=== PATIENT | female | born 1995 | race Hispanic/Latino ===

== ENCOUNTER 2017-06-21 07:13 | Inpatient (IN) | payer MEDICAID, OTHER, SELFPAY ==
[2017-06-21] MEDS ORDERED: Promethazine HCl 25 MG/ML VIAL IM PRN ×3 (07:43→09:34)
[2017-06-21] MEDS ORDERED: Lidocaine 1% (PF) 30 ML VIAL SC PRN (07:43)
[2017-06-21] MEDS ORDERED: LR / Pitocin 40 units/1000 ml 1,000 ML IV PRN (07:43)
[2017-06-21] MEDS ORDERED: HYDROcodone/Acetaminophen 5/325 mg Tablet PO PRN ×2 (07:43)
[2017-06-21] MEDS ORDERED: Ibuprofen 800 MG TAB PO PRN (07:43)
--- NOTE | 2017-06-21 07:49 | PDOC.LDHP ---
Labor and Delivery H&P HPI: 21 year old (slovak speaking patient of Dr Malik) with no complications presents with CTXs and ROM. Patient of the Clinic. Denies past medical problems. Admitted at [address] Malik aware. Current gestational age (weeks): 37 Dating criteria: last menstrual period Current complications: none Abnormal US findings: No Current medications: none Previous surgical history: none Allergies/Adverse Reactions: Allergies Allergy/AdvReac Type Severity Reaction Status Date / Time No Known Allergies Allergy Unverified 11/20/15 11:39 Social history: none - Physical Exam Vital signs reviewed and normal: yes Heart: RRR Abdomen: gravid - Vaginal Exam cm dilated: 7 Effacement: 90% Station: -1 - Assessment L&D Assessment: term patient in labor - Plan Plan: admit to L&D, informed consent obtained, anesthesia consult for pain management, other (Dr King santiago. I have seen and interviewed/examined the patient.)
[2017-06-21] MEDS: Lactated Ringer's 1,000 ML IV SCH ×2 (08:00→10:04)
[2017-06-21 08:03] VITALS: BMI 34.1
[2017-06-21 08:14] LABS: Hematocrit 33.8 % (36.0-47.0); Mean Platelet Volume 9.7 fL (7.4-10.4); Red Blood Cell (RBC) Count 3.91 mill/uL (4.20-5.40); White Blood Cell (WBC) Count 9.8 thou/uL (4.8-10.8)
[2017-06-21] MEDS ORDERED: Fentanyl 4 mcg/Marc 0.1% Cadd 100 ML ONE (08:16)
--- NOTE | 2017-06-21 08:40 | PDOC.LDHP ---
Labor and Delivery H&P Chief complaint: contractions, loss of fluid HPI: 21 @ 37.5wks by 12wk US with EDC on 07/07/2017 presents to L&D with contractions since 0200 and loss of fluid at 0400. No complaint of bleeding or abnormal discharge. Endorses recent viral illness. OB Hx: 1st: IUFD @ 32weeks 2nd: PMHX: denies PSHX: denies complications: denies, normal ultrasounds, normal quad screen, placenta posterior; mom states most recent ultrasound was on Thursday and baby's head was down. 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 see above. Current medications: pre-daryn vitamins Previous surgical history: none Allergies/Adverse Reactions: Allergies Allergy/AdvReac Type Severity Reaction Status Date / Time No Known Allergies Allergy Verified 06/21/17 07:54 Social history: none - Physical Exam Vital signs reviewed and normal: yes General: NAD, resting, breathing through contractions Heart: RRR Lungs: nonlabored breathing Abdomen: NTTP Extremeties: no edema FHT: category 2, early decelerations, variability present [place] contractions every: 5 minutes - Vaginal Exam cm dilated: 7 Effacement: 90% Station: 0 - OB Labs Blood type: A RH: positive Antibody Screen: negative HIV: negative RPR: negative HEPSAg: negative GBS: negative Rubella: immune Additional Labs: gonorrhea/chlamydia negative - Assessment L&D Assessment: term patient in labor 2 @ 37.5wks by 12wk US with EDC on 07/07/2017 presents to L&D with contractions since 0200 and loss of fluid at 0400 admitted to L&D for term in labor and spontaneous rupture of membranes. - Plan Plan: admit to L&D, informed consent obtained, anesthesia consult for pain management
--- NOTE | 2017-06-21 09:23 | PDOC.LDPN ---
Labor & Delivery Progress Note - Subjective Subjective: comfortable - Objective Vital signs reviewed and normal: yes General: NAD, resting Uterine fundus: non tender Dilation: 7 Effacement: 50% Station: -1 FHT: category 1 (130/mod/+accel/no decel) [place] contractions every: 2 Plan: continue plan of care, labor augmentation -: 21 @ 37.5wks by 12.2 w sono here in active labor. 1. Active Labor: s/p SROM at home. No change since last check, will augment with pitocin. s/p epidural 2. 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 BPP/NST last week 04/21. 3. H/o LGA : a1c and GTT WNL. Will ensure adequate attendant's at delivery for assistance if needed 4. Varicella immune: patient states she had chicken pox as a child 5. Short interval 6. Tdap and flu pp if indicated, will request additional records from [facility] tomorrow MD Alessia, PGY-2 <Charity Shannon - Last Filed: 06/21/17 09:27> Attending Addendum - Attending Addendum I personally evaluated the patient and discussed the management with Dr. Shannon I agree with the History, Examination, Assessment and Plan documented above with any addition or exceptions noted below. <Breezy Lopez - Last Filed: 06/22/17 07:58>
[2017-06-21] MEDS ORDERED: LR 500 ML/Oxytocin 10 units 500 ML IV SCH (09:30)
[2017-06-21] MEDS ORDERED: Lactated Ringer's 500 ML IV PRN ×2 (09:33→09:34)
[2017-06-21] MEDS ORDERED: ePHEDrine/0.9% NaCl/PF SYRINGE 50 mg/10 ml SLOW IVP PRN ×2 (09:33→09:34)
[2017-06-21] MEDS ORDERED: Eucerin (Mineral Oil/Petrolatum,White) 30 gm Jar TOP PRN ×2 (09:33→09:34)
[2017-06-21] MEDS ORDERED: Naloxone HCl 0.4 mg/ml Vial IVP PRN ×4 (09:33→09:34)
[2017-06-21] MEDS ORDERED: Ondansetron HCl/PF 4 MG/2 ML Vial IVP PRN ×2 (09:33→09:34)
[2017-06-21] MEDS ORDERED: diphenhydrAMINE 50 MG/ML VIAL IVP PRN ×2 (09:33→09:34)
[2017-06-21] MEDS ORDERED: Acetaminophen 325 MG TAB PO PRN ×2 (09:33→09:34)
[2017-06-21] MEDS ORDERED: Communication Order-Pharmacy FS SCH ×2 (09:45)
[2017-06-21] MEDS ORDERED: Fentanyl 4mcg/Marcaine 0.1% Cassette 100 ML EPIDURAL SCH (09:45)
--- NOTE | 2017-06-21 11:16 | PDOC.LDPN ---
Labor & Delivery Progress Note - Subjective Subjective: comfortable - Objective Vital signs reviewed and normal: yes General: NAD, resting Uterine fundus: non tender SVE: 11:10 Dilation: 8 Effacement: 75% Station: -1 FHT: category 1 (130/mod variability/+accels/early decels), early decelerations [place] contractions every: q3-4 min IUPC placed: yes Plan: continue plan of care, labor augmentation -: 21 @ 37.5wks by 12.2 w sono here in active labor. 1. Active Labor: s/p SROM at home. Last check at 11:10 was 875/-1. IUPC placed to monitor MVUs. s/p epidural. Continue augmentation with pitocin. 2. 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 BPP/NST last week 04/21. 3. H/o LGA infant: a1c and GTT WNL. Will ensure adequate attendant's at delivery for assistance if needed 4. Varicella immune: patient states she had chicken pox as a child 5. Short interval 6. Tdap and flu pp if indicated, will request additional records from [facility] tomorrow 7. Term <Xochitl Prabhakar - Last Filed: 06/21/17 11:23> Attending Addendum - Attending Addendum I personally evaluated the patient and discussed the management with Dr. Prabhakar I agree with the History, Examination, Assessment and Plan documented above with any addition or exceptions noted below. <Breezy Lopez - Last Filed: 06/22/17 07:59>
--- NOTE | 2017-06-21 13:45 | PDOC.OPDEL ---
OB Operative/Delivery Note Delivery Dr/Surgeon: Vanna Assist: Jessica Shannon Pre-Delivery Diagnosis: active labor, ruptured membrane Procedure/Post Delivery Dx: spontaneous vaginal delivery Anesthesia: epidural - Findings A Sex: female Weight: 6 lb 10.316 oz - 1 min: 9 - 5 min: 9 - Additional Findings/Plan Placenta delivered: spontaneous Repaired Obstetrical Laceration: left labial Estimated blood loss: visualized less than 500 mL Post delivery plan: routine recovery <Xochitl Prabhakar - Last Filed: 06/21/17 15:17> Attending Addendum - Attending Addendum I personally was present for the management and delivery of infant with Dr. Prabhakar and Dr Shannon I agree with the documention above with any addition or exceptions noted below. <Breezy Lopez - Last Filed: 06/22/17 08:01>
[2017-06-21] MEDS ORDERED: Bisacodyl 10 MG SUPP PR PRN (14:03)
[2017-06-21] MEDS ORDERED: Lanolin Ointment 7 GM TUBE TOP PRN (14:03)
[2017-06-21] MEDS ORDERED: Milk Of Magnesia 30 ML UDCUP PO PRN (14:03)
[2017-06-21] MEDS ORDERED: LR / Pitocin 40 units/1000 ml 1,000 ML IV SCH (14:03)
[2017-06-21 16:00] LABS: Band 2 % (5-11); Hematocrit 32.1 % (36.0-47.0); Mean Platelet Volume 10.4 fL (7.4-10.4); Neutrophil 81 % (42-75); Red Blood Cell (RBC) Count 3.69 mill/uL (4.20-5.40); White Blood Cell (WBC) Count 8.9 thou/uL (4.8-10.8)
[2017-06-21] MEDS: Ferrous Sulfate 325 MG TAB PO SCH (19:14)
[2017-06-21] MEDS: Ibuprofen 800 MG TAB PO SCH ×2 (19:14→21:29)
--- NOTE | 2017-06-21 21:03 | OP-2 ---
DELIVERING PHYSICIAN: Xochitl Prabhakar D.O. ATTENDING PHYSICIAN: Breezy Lopze M.D. PROCEDURE: Spontaneous vaginal delivery. ANESTHESIA: Epidural, local for repair. ESTIMATED BLOOD LOSS: Visualized at less than 500 mL. PREOPERATIVE DIAGNOSES: 1. Term intrauterine in labor. 2. History of with Patel syndrome with intrauterine demise at 33 weeks. 3. History of large for gestational age infant. 4. Short interval. 5. Varicella immune. POSTOPERATIVE DIAGNOSES: 1. Term intrauterine , delivered. 2. History of infant with Patel syndrome with intrauterine demise at 33 weeks. 3. History of large for gestational age . 4. Short interval. 5. Varicella immune. 6. Left labial tear status post repair. INDICATIONS: A 21-year-old female G3, P1-1-0-1 at 37 and 5 weeks, presents in active labor with spontaneous rupture of membranes. DELIVERY NOTE: This is a 21-year-old female G3, P1-1-0-1 at 37 and 5 weeks who delivered a viable female infant at 1253 hours on 06/21/2017. Following an uneventful antepartum course, a vigorous female was delivered over an intact perineum in the occipitoanterior position. Anterior shoulder and then remainder of the body delivered. No nuchal cord. The head was held down and mouth and nares were bulb suctioned. Cord clamped and cut and cord blood collected. It is questionable whether or not placenta was intact, so it was sent for pathology. ASSESSMENT: A 3-vessel cord noted. Fundal massage was performed and the fundus was firm. The cervix and vagina were inspected and there was found to be a left labial tear, which was repaired with 3-0 and 4-0 Vicryl in the usual fashion with good approximation and hemostasis after local anesthetic, 1% lidocaine was injected at the site. went to the nursery in good condition for routine care. Apgars were 9 and 9 at 1 and 5 minutes, respectively. The patient tolerated delivery well and went to after routine recovery/care. I was present for the entire delivery and repair. agree with the above documentation. [facility]
[2017-06-21] MEDS: Docusate Calcium (SURFAK) 240 MG CAP PO SCH (21:29)
[2017-06-22] MEDS: Ibuprofen 800 MG TAB PO SCH ×2 (06:13→14:24)
--- NOTE | 2017-06-22 07:20 | PDOC.PP ---
Post Progress Note Post Day #: 1 Subjective: Feeling well this morning. Lochia approximately that of a menstrual period. Feeling well and would like to go home today if able. PO intake tolerated: yes Flatus: yes Ambulation: yes Vital Signs (12 hours) Temp Pulse Resp BP BP 06/22/17 04:25 98.6 F 65 18 92/58 L 06/22/17 00:00 98.4 F 60 18 89/52 L 06/21/17 19:35 99.0 F 64 20 113/61 Weight Weight 92.986 kg - Physical Examination General: NAD Cardiovascular: no m/r/g, RRR Respiratory: clear to auscultation bilaterally, non-labored breathing Abdominal: + bowel sounds, lochia, no distention, appropriately TTP Fundus firm & at: umbilicus Extremities: negative homans (B) Neurological: no gross focal deficits Psychiatric: A&Ox3, normal affect Result Diagrams: 06/21/17 14:46 Additional Labs: Post Labs Hep Bs Antigen Non-Reactive S/CO (NonReactive) 06/21/17 07:55 (1) Term of female Code(s): Z37.0 - SINGLE LIVE Status: Acute - Assessment/Plan 21 yo now 2020 delivered via yesterday afternoon 1. PPD #1 from TSVD - 1st degree L labial laceration s/p repair - Meeting all PP milestones - Pain well-controlled with some intermittent cramping - H&H stable - Likely discharge later today if bleeding remains appropriate and infant ready for D/C <Charity Shannon - Last Filed: 06/22/17 07:20> Vital Signs (12 hours) Temp Pulse Resp BP BP 06/22/17 04:25 98.6 F 65 18 92/58 L 06/22/17 00:00 98.4 F 60 18 89/52 L Weight Weight 205 lb Result Diagrams: 06/21/17 14:46 Additional Labs: Post Labs Hep Bs Antigen Non-Reactive S/CO (NonReactive) 06/21/17 07:55 <Breezy Lopez - Last Filed: 06/22/17 08:04> Attending Addendum - Attending Addendum I agree with the History, Examination, Assessment and Plan documented above with any addition or exceptions noted below. <Breezy Lopez - Last Filed: 06/22/17 08:04>
[2017-06-22] MEDS ORDERED: Adacel (T-DAP) 0.5 ML VIAL IM ONE (09:00)
[2017-06-22] MEDS ORDERED: Prenatal Vitamin 1 TAB PO SCH (09:00)
[2017-06-22] MEDS: Ferrous Sulfate 325 MG TAB PO SCH (09:37)
[2017-06-22] MEDS: Docusate Calcium (SURFAK) 240 MG CAP PO SCH (09:37)
[2017-06-22 12:26] VITALS: BP 100/52; TEMP 97.9
== END 2017-06-22 16:08 | disposition home or self-care (01) | DRG 775 ==
LOC: L&D/OP 07:13 → L&D 09:00 → 3SW 15:19
PROVIDERS: ADMIT Obstetrics & Gynecology; ATTEND Obstetrics & Gynecology
PROC: 10E0XZZ Delivery of Products of Conception, External Approach (ICD-10-PCS; principal; 2017-06-21)
PROC: 0KQM0ZZ Repair Perineum Muscle, Open Approach (ICD-10-PCS; 2017-06-21)
PROC: 4A0HXCZ Measurement of Products of Conception, Cardiac Rate, External Approach (ICD-10-PCS; 2017-06-21)
DX: O76 Abnormality in fetal heart rate and rhythm complicating labor and delivery (principal); O70.1 Second degree perineal laceration during delivery; Z37.0 Single live birth; Z3A.37 37 weeks gestation of pregnancy
CPT/HCPCS: 36415; 85027; 86780; 87340; 87389; 88307; J2001

== ENCOUNTER 2019-08-22 18:49 | Emergency (ER) | payer BC ==
[2019-08-22 19:42] LABS: #Basophils 0.1 thou/uL (0.0-0.2); #Eosinphils 0.3 thou/uL (0.0-0.7); #Lymphocytes 2.9 thou/uL (1.20-3.40); #Monocytes 0.6 thou/uL (0.11-0.59); #Neutrophils 4.6 thou/uL (1.40-6.50); %Basophils 0.7 % (0.0-1.0); %Eosinophils 3.2 % (0.0-10.0); %Lymphocytes 34.7 % (21.0-51.0); %Monocytes 6.7 % (0.0-10.0); %Neutrophils 54.8 % (42.0-75.0); Mean Corpuscular Hemoglobin 28.7 pg (27.0-31.0); Mean Corpuscular Volume 86.9 fL (78.0-98.0); Mean Platelet Volume 9.2 fL (7.4-10.4); Platelet Count 191 thou/uL (130-400); RBC Distribution Width 12.3 % (11.5-14.5); Red Blood Cell (RBC) Count 4.17 mill/uL (4.20-5.40); White Blood Cell (WBC) Count 8.5 thou/uL (4.8-10.8)
[2019-08-22 20:04] LABS: ALT (SGPT) 15 U/L (8-55); AST (SGOT) 14 U/L (5-34); Alkaline Phosphatase 65 U/L (40-110); Anion Gap 10 mmol/L (10-20); BUN (Urea Nitrogen) 10 mg/dL (7.0-18.7); Bilirubin, Total 0.3 mg/dL (0.2-1.2); Calc. Creatinine Clearance 0 mL/min (70-130); Calcium 8.9 mg/dL (7.8-10.44); Carbon Dioxide 26 mmol/L (22-29); Chloride 107 mmol/L (98-107); Estimated GFR-MDRD Greater than 90; Globulin 3.2 g/dL (2.4-3.5); Glucose 111 mg/dL (70-105); Potassium 3.8 mmol/L (3.5-5.1); Protein, Total 7.2 g/dL (6.0-8.3); Sodium 139 mmol/L (136-145)
[2019-08-22 22:58] LABS: Bacteria/HPF None Seen HPF (None Seen); Bilirubin Negative (Negative); Blood, Urine 3+ (Negative); Clarity Extra Turbid (Clear); Glucose, Urine (Dipstick) Normal (Negative); Leukocyte 25 Leu/uL (Negative); Mucous/LPF Rare LPF (<2+); Nitrite Negative (Negative); Protein, Urine (Dipstick) 10 mg/dL (Neg-Trace); Urobilinogen Normal mg/dL (Less than 2); WBC/HPF 0-3 HPF (0-3)
== END 2019-08-22 23:51 | disposition home or self-care (01) ==
LOC: ERS 18:49
DX: O20.0 Threatened abortion (principal); Z3A.01 Less than 8 weeks gestation of pregnancy
CPT/HCPCS: 36415; 76856; 80053; 81003; 81015; 84702; 85025; 86900; 86901; 99284

== ENCOUNTER 2020-01-27 06:41 | Outpatient (CLI) | payer BC, OTHER ==
[2020-01-27 14:09] LABS: #Eosinphils 0.3 thou/uL (0.0-0.7); #Lymphocytes 2.6 thou/uL (1.20-3.40); #Monocytes 0.5 thou/uL (0.11-0.59); #Neutrophils 4.1 thou/uL (1.40-6.50); %Basophils 0.2 % (0.0-1.0); %Eosinophils 3.4 % (0.0-10.0); %Monocytes 6.6 % (0.0-10.0); %Neutrophils 54.8 % (42.0-75.0); Hemoglobin 12.9 g/dL (12.0-16.0); Mean Corpuscular HGB CONC 32.7 g/dL (32.0-36.0); Mean Corpuscular Hemoglobin 28.4 pg (27.0-31.0); Mean Corpuscular Volume 86.8 fL (78.0-98.0); Mean Platelet Volume 10.1 fL (7.4-10.4); Platelet Count 194 thou/uL (130-400); Red Blood Cell (RBC) Count 4.56 mill/uL (4.20-5.40); White Blood Cell (WBC) Count 7.5 thou/uL (4.8-10.8)
[2020-01-28 12:21] LABS: SARS-CoV-2 MS2 Positive; SARS-CoV-2 N Gene Negative; SARS-CoV-2 S Gene Negative; SARS-CoV-2 orf1ab Negative
== END 2020-01-27 06:42 | disposition home or self-care (01) ==
LOC: LABBT 06:41
PROVIDERS: ATTEND Obstetrics & Gynecology
DX: Z01.812 Encounter for preprocedural laboratory examination (principal); Z11.59 Encounter for screening for other viral diseases; T83.32XA Displacement of intrauterine contraceptive device, initial encounter
CPT/HCPCS: 84702; 85025; 87635; U0003

== ENCOUNTER 2020-01-30 11:20 | Day surgery (SDC) | payer BC ==
[2020-01-26 16:14] VITALS: BMI 32.5
--- NOTE | 2020-01-30 11:38 | HP ---
HISTORY OF PRESENT ILLNESS: Ms. Tariq Ellis is a 24-year-old female A2, prior x2, who has had a Mirena IUD in situ and a noted back in early August 2019. The IUD was attempted to be removed and it was unable to be removed at that time and ultrasound showed loss of gestational sac with followup ultrasound on 09/08 showing loss of gestational sac with IUD still in the cervix. She was seen in my office on 09/12/2019 for attempted removal of the IUD. On an attempt to remove the IUD that was dislodged at the previous clinic, while trying to remove it, the end of the strings were grasped with steady force applied to dislodge the IUD and the strings broke off fully. The IUD remained lodged. Ultrasound was performed and it appeared that the IUD is somewhat embedded in the lower uterine segment and cervix. Due to this, she is scheduled to undergo diagnostic hysteroscopy with attempted removal of the IUD with possible laparoscopy if indicated. PAST MEDICAL HISTORY: Otherwise negative. PAST SURGICAL HISTORY: Negative. She had two spontaneous vaginal deliveries. CURRENT MEDICATION: Depo-Provera 150 mg q.3 months for contraception due to improperly placed IUD. FAMILY HISTORY: Only significant for mother who has had leukemia and a maternal aunt with carcinoma of the cervix. PHYSICAL EXAMINATION: VITAL SIGNS: Height is 5 feet 5 inches, weight 196, BMI 32.6, blood pressure 112/64, pulse 72 and regular, respiratory rate 18, and O2 saturation on room air 98%. HEENT: Within normal limits. CHEST: Clear to auscultation. HEART: Regular rate and rhythm. S1, S2 heart sounds. No murmurs, rubs, or gallops. ABDOMEN: Soft, nontender, nondistended with no palpable masses. PELVIS: Vulva and vagina had no lesions. Cervix had no lesions. As noted, the strings had broken off from the IUD while trying to remove it due to it being most likely embedded in the lower uterine cervix and segment of the cervix. No adnexal masses were palpated nor were they visualized on ultrasound. The ultrasound was performed on 09/08/2019. Uterus measured 9.6 x 6.4 x 4.4 cm. Left and right ovary were normal. The IUD removal had been attempted at [facility], but unsuccessful, and there is still IUD visualized in the cervical canal and appears to be extended into the posterior wall of the uterus. There is no gestational sac seen at that time. ASSESSMENT: This is a 24-year-old, G5, P2, A3 with dislodged, imbedded IUD. PLAN: Plan is to proceed with hysteroscopic attempted removal in the operating room. If there is any evidence of significant perforation, laparoscopy at that time may be indicated to ascertain location. Risks and benefits of procedure I have discussed in detail. She is set for surgery on 01/29. Job ID: [id number]
[2020-01-30] MEDS ORDERED: Famotidine/PF 20 mg/2ml Vial ONE (12:04)
[2020-01-30] MEDS ORDERED: CeleCOXIB 100 MG CAP ONE (12:04)
[2020-01-30] MEDS ORDERED: Ondansetron PF 4 MG/2 ML Vial ONE (12:35)
[2020-01-30] MEDS ORDERED: Succinylcholine Chloride 20 MG/ML 10 ml SYRINGE FS ONE (12:35)
[2020-01-30] MEDS ORDERED: Rocuronium Bromide 10 MG/ML (10ML VIAL) ONE (12:35)
[2020-01-30] MEDS ORDERED: Dexamethasone 20 MG/5 ML VIAL ONE (12:35)
[2020-01-30] MEDS ORDERED: Lidocaine 1% PF 5 ML VIAL ONE (12:35)
[2020-01-30] MEDS ORDERED: PROPOFOL 200 MG/20 ML VIAL ONE (12:35)
[2020-01-30] MEDS ORDERED: Gabapentin 300 MG CAP ONE (12:41)
[2020-01-30] MEDS ORDERED: Fentanyl 100 MCG/2 ML VIAL ONE (13:22)
[2020-01-30] MEDS ORDERED: Lidocaine 1% w/Epinephrine 1:100K 20 ML VIAL ONE (13:31)
[2020-01-30] MEDS ORDERED: Bupivacaine PF 0.5% 30 ML VIAL ONE (13:31)
--- NOTE | 2020-01-30 20:46 | OP ---
DATE OF PROCEDURE: 01/30/2020 PREOPERATIVE DIAGNOSIS: A 24-year-old Latin-N[place]ian female, G2, P1, A1 with embedded Mirena IUD. POSTOPERATIVE DIAGNOSIS: Perforated IUD. PROCEDURES PERFORMED: Diagnostic hysteroscopy followed by diagnostic laparoscopy with removal of IUD device. ANESTHESIA: General endotracheal. ESTIMATED BLOOD LOSS: Less than 10 mL. Fluid deficit from the hysteroscopic procedure was 200 mL of normal saline. FINDINGS: 1. Hysteroscopic evaluation. Endometrial cavity showed normal upper fundus and bilateral tubal ostia with an IUD string noted that was taut and fixed in the posterior lower uterine segment. No IUD device visualized in the endometrial cavity or cervical canal. 2. Laparoscopic finding, perforation of IUD device in the right posterior lower uterine segment noted corresponding to the trailing IUD string seen in the endometrial cavity. It was covered with some omental adhesions, status post removal. 3. Normal-appearing uterus, bilateral fallopian tubes and bilateral ovaries. DISPOSITION: To recovery room, then plan for discharge from Day Stay. DESCRIPTION OF PROCEDURE: The patient previously received informed consent in regard to surgery. She was taken back to the operating room, where she received a general endotracheal anesthetic agent without complications. She was placed in the dorsal lithotomy position with use of Robert stirrups and prepped and draped in usual sterile fashion. A side-arm speculum was placed in the vagina after in-and-out catheterization of the bladder had been performed. The uterus was grasped with a single-tooth tenaculum. The uterus was sounded to 8 cm. Initially, a uterine dressing forceps was utilized to grasp within the endocervical canal the intrauterine device, and also a sharp curette was also placed, and there was no actual textural feeling for an IUD noted. Then, I dilated the cervix to a 16-Swedish dilator and placed a diagnostic 5 mm hysteroscope inside the endometrial cavity with fluid distention in saline at 80 mm of pressure. I did visualize a blue IUD nylon string that was appeared to be coming out of the lower posterior uterine segment. I took a uterine grasping forceps and grasped the drain and it was very snugly placed and unable to be pulled through. With this finding and no evidence of the usual IUD apparatus within the cavity of the uterus, I then removed the hysteroscope and then proceeded to perform a diagnostic laparoscopy. The patient had already been prepped for this and I changed again sterile gloves. I made a 5 mm infraumbilical incision after the areas had been infiltrated with 0.5% Marcaine with epinephrine. A Veress needle was placed into the peritoneal cavity. The patient's pressure was noted to be less than 5 mmHg. With the patient pressure of 15, approximately 4.5 L of carbon dioxide gas had been instilled. I then placed a 5 mm trocar through the infraumbilical incision, and then a 5 mm laparoscope was introduced through the trocar sleeve. The Hulka uterine manipulator had been placed prior to this, and the uterus was elevated from the pelvis and the location of the intrauterine device was noted to be in the right posterior lower uterine segment and still attached by the string that was inside the endometrial cavity. There were some omental adhesions overlying this and therefore, I placed another midline suprapubic 5 mm trocar and a left lower quadrant 5 mm trocar for removal of the IUD. My orthotic assistant held the laparoscope and elevated the uterus from the pelvis with the uterine manipulator. I used an Endo Eulogio with an atraumatic grasper where I grasped the device with an atraumatic grasper in the midline suprapubic port, and then I gently teased the device away from the uterus and the string pulled through outside of the uterus into the peritoneal cavity. We then used the Endo Eulogio and dissected off the omental adhesions. This then disconnected the IUD device from the omental adhesion. I then lined up the string in the lower IUD device and pulled that through the midline suprapubic trocar sleeve and this was easily removed in that fashion. I then used the Endo Eulogio with bipolar cautery to cauterize over the perforated area of the uterus for hemostasis. The pelvis was inspected the previously mentioned findings and hemostasis was confirmed. The laparoscope was removed. Trocar sleeves were removed after excess carbon dioxide gas was released. Trocar sites were closed with 4-0 Monocryl subcuticular and Dermabond, and the Hulka uterine manipulator was removed. The Bovie cautery was needed to obtain hemostasis in the anterior cervical lip, where the Hulka uterine manipulator had been placed and this was achieved. The patient was awakened from anesthesia, transferred to recovery room in stable condition. Job ID: [id number]
== END 2020-01-30 17:43 | disposition home or self-care (01) ==
LOC: SDC 11:20
PROVIDERS: ATTEND Obstetrics & Gynecology
PROC: 0UC98ZZ Extirpation of Matter from Uterus, Via Natural or Artificial Opening Endoscopic (ICD-10-PCS; principal; 2020-01-30)
PROC: 0UPD4HZ Removal of Contraceptive Device from Uterus and Cervix, Percutaneous Endoscopic Approach (ICD-10-PCS; principal; 2020-01-30)
DX: T83.39XA Other mechanical complication of intrauterine contraceptive device, initial encounter (principal); Z11.59 Encounter for screening for other viral diseases
CPT/HCPCS: 86850; 86900; 86901; J0690; J1100; J2405; J2704; J3010; S0020; S0028